=== PATIENT | male | born 1940 ===

== ENCOUNTER 2020-11-27 05:00 | Inpatient (IN) | payer MEDICARE, MEDICAID ==
[~2020-11-27] VITALS: Ht 171.4 cm; Wt 86.6 kg
[2020-11-27] MEDS ORDERED: ONDANSETRON ODT 4 MG PO PRN (10:30)
[2020-11-27] MEDS ORDERED: PLEASE ENTER HEIGHT AND WEIGHT MC SCH (15:30)
[2020-11-27] MEDS ORDERED: MEMA5TAB PO (16:18)
[2020-11-27] MEDS ORDERED: ASPI-963 PO (16:20)
[2020-11-27] MEDS ORDERED: PROP20TA PO (16:20)
[2020-11-27] MEDS ORDERED: PRIM50TA34 PO (16:20)
[2020-11-27] MEDS ORDERED: RISP0.5T24 PO (16:21)
[2020-11-27] MEDS ORDERED: ATOR80TA PO (16:45)
[2020-11-27 16:50] VITALS: BP 143/63
[2020-11-27 19:35] VITALS: BP 121/68
[2020-11-28 05:47] LABS: BASOPHILS % (AUTO) 1 % (0-1); EOSINOPHILS % (AUTO) 2 % (1-7); LYMPHOCYTES % (AUTO) 28 % (22-44); MEAN CORPUSCULAR HEMOGLOBIN 31.8 pg (27.5-34.5); MEAN CORPUSCULAR HGB CONC 33.6 g/dL (33.2-36.2); MEAN PLATELET VOLUME 8.4 fL (7.4-10.4); MONOCYTES % (AUTO) 10 % (2-9); NEUTROPHILS % (AUTO) 60 % (42-75); PLATELET COUNT 154 x10^3/uL (130-400); RED BLOOD COUNT 4.76 x10^6/uL (4.38-5.82); RED CELL DISTRIBUTION WIDTH 13.8 % (9.4-14.8)
[2020-11-28 05:57] LABS: MD NO
[2020-11-28 06:07] LABS: CHLORIDE 109 mmol/L (98-107)
[2020-11-28 06:23] LABS: ALANINE AMINOTRANSFERASE 20 U/L (12-78); ALKALINE PHOSPHATASE 65 U/L (45-117); ANION GAP 5 mmol/L (5-15); BILIRUBIN,TOTAL 0.5 mg/dL (0.2-1.0); CALCIUM 8.5 mg/dL (8.5-10.1); CHOL/HDL RATIO 4.9; CHOLESTEROL, TOTAL 165 mg/dL (140-239); CREATININE 1.18 mg/dL (0.7-1.3); FREE T4 (FREE THYROXINE) 1.27 ng/dL (0.76-1.46); HDL CHOL % 21 % (26-37); HDL CHOLESTEROL (DIRECT) 34 mg/dL (40-60); LDL CHOLESTEROL,CALCULATED 105 mg/dL (54-169); LDL/HDL RATIO 3.1 (0.5-3.0); TOTAL PROTEIN 6.3 g/dL (6.4-8.2); TRIGLYCERIDES 131 mg/dL (50-200); VLDL CHOLESTEROL 26 mg/dL (0-25)
[2020-11-28 07:41] VITALS: BP 119/72
[2020-11-28] MEDS: ASPIRIN 81 MG TABLET EC PO SCH (08:26)
[2020-11-28 15:52] LABS: MICROSCOPIC NOT IND
[2020-11-28 19:54] VITALS: BP 138/79
[2020-11-28] MEDS: ATORVASTATIN 80 MG TABLET PO SCH (20:18)
[2020-11-28] MEDS: RISPERIDONE 0.5 MG TABLET PO SCH (20:18)
[2020-11-28] MEDS: MEMANTINE 5MG TABLET PO SCH (20:18)
[2020-11-29 08:00] VITALS: BP 160/84
[2020-11-29] MEDS: RISPERIDONE 0.5 MG TABLET PO SCH ×2 (09:00→20:14)
[2020-11-29] MEDS: MEMANTINE 5MG TABLET PO SCH ×2 (09:00→20:14)
[2020-11-29] MEDS: ASPIRIN 81 MG TABLET EC PO SCH (09:00)
[2020-11-29 11:52] VITALS: BP 160/84
[2020-11-29 19:38] VITALS: BP 105/70
[2020-11-29] MEDS: ATORVASTATIN 80 MG TABLET PO SCH (20:14)
[2020-11-30 08:00] VITALS: BP 103/61
[2020-11-30] MEDS: RISPERIDONE 0.5 MG TABLET PO SCH ×2 (09:00→21:01)
[2020-11-30] MEDS: MEMANTINE 5MG TABLET PO SCH ×2 (09:00→21:01)
[2020-11-30] MEDS: ASPIRIN 81 MG TABLET EC PO SCH (09:15)
[2020-11-30 19:41] VITALS: BP 128/74
[2020-11-30] MEDS: ATORVASTATIN 80 MG TABLET PO SCH (21:01)
[2020-12-01 07:39] VITALS: BP 122/64
[2020-12-01] MEDS: RISPERIDONE 0.5 MG TABLET PO SCH ×3 (09:00→21:11)
[2020-12-01] MEDS: ASPIRIN 81 MG TABLET EC PO SCH ×2 (09:00→09:35)
[2020-12-01] MEDS: MEMANTINE 5MG TABLET PO SCH ×2 (09:00→21:11)
[2020-12-01 19:50] VITALS: BP 154/80
[2020-12-01] MEDS: ATORVASTATIN 80 MG TABLET PO SCH (20:00)
[2020-12-02] MEDS ORDERED: ZIPRASIDONE 20 MG INJ IM ONE
[2020-12-02 00:21] VITALS: BP 127/99
[2020-12-02 07:32] VITALS: BP 119/69
[2020-12-02] MEDS: RISPERIDONE 0.5 MG TABLET PO SCH ×2 (09:00→20:21)
[2020-12-02] MEDS: ASPIRIN 81 MG TABLET EC PO SCH (09:00)
[2020-12-02] MEDS: MEMANTINE 5MG TABLET PO SCH ×2 (09:00→20:21)
[2020-12-02] MEDS ORDERED: OLANZAPINE 10 MG INJ IM PRN (14:00)
[2020-12-02 19:41] VITALS: BP 125/72
[2020-12-02] MEDS: ATORVASTATIN 80 MG TABLET PO SCH (20:21)
[2020-12-03 07:31] VITALS: BP 127/78
[2020-12-03] MEDS: ASPIRIN 81 MG TABLET EC PO SCH (08:44)
[2020-12-03] MEDS: RISPERIDONE 0.5 MG TABLET PO SCH ×2 (08:58→20:19)
[2020-12-03] MEDS: MEMANTINE 5MG TABLET PO SCH ×2 (08:58→20:19)
[2020-12-03 19:39] VITALS: BP 158/80
[2020-12-03] MEDS: ATORVASTATIN 80 MG TABLET PO SCH (20:19)
[2020-12-04 07:42] VITALS: BP 124/74
[2020-12-04] MEDS: MEMANTINE 5MG TABLET PO SCH ×3 (08:55→21:06)
[2020-12-04] MEDS: ASPIRIN 81 MG TABLET EC PO SCH (08:55)
[2020-12-04] MEDS: RISPERIDONE 0.5 MG TABLET PO SCH ×3 (08:55→21:06)
[2020-12-04 19:32] VITALS: BP 168/82
[2020-12-04] MEDS: ATORVASTATIN 80 MG TABLET PO SCH ×2 (21:02→21:06)
[2020-12-05 07:48] VITALS: BP 115/63
[2020-12-05] MEDS: MEMANTINE 5MG TABLET PO SCH ×2 (09:00→21:44)
[2020-12-05] MEDS: ASPIRIN 81 MG TABLET EC PO SCH (09:00)
[2020-12-05] MEDS: RISPERIDONE 0.5 MG TABLET PO SCH ×2 (09:00→21:44)
[2020-12-05] MEDS: ATORVASTATIN 80 MG TABLET PO SCH (21:44)
[2020-12-06] MEDS: RISPERIDONE 0.5 MG TABLET PO SCH ×2 (08:53→19:34)
[2020-12-06] MEDS: MEMANTINE 5MG TABLET PO SCH ×2 (08:54→19:34)
[2020-12-06] MEDS: ASPIRIN 81 MG TABLET EC PO SCH (08:54)
[2020-12-06 11:01] VITALS: BP 102/60
[2020-12-06 19:22] VITALS: BP 114/70
[2020-12-06] MEDS: ATORVASTATIN 80 MG TABLET PO SCH (19:34)
[2020-12-07 07:31] VITALS: BP 103/55
[2020-12-07] MEDS: ASPIRIN 81 MG TABLET EC PO SCH (08:41)
[2020-12-07] MEDS: RISPERIDONE 0.5 MG TABLET PO SCH ×2 (08:42→20:41)
[2020-12-07] MEDS: MEMANTINE 5MG TABLET PO SCH ×2 (08:42→20:41)
[2020-12-07 19:35] VITALS: BP 133/70
[2020-12-07] MEDS: ATORVASTATIN 80 MG TABLET PO SCH (20:41)
[2020-12-08 07:41] VITALS: BP 182/94
[2020-12-08 08:09] VITALS: BP 172/107
[2020-12-08] MEDS: ASPIRIN 81 MG TABLET EC PO SCH (08:35)
[2020-12-08] MEDS: MEMANTINE 5MG TABLET PO SCH ×2 (08:35→20:32)
[2020-12-08 08:39] VITALS: BP 151/93
[2020-12-08] MEDS: RISPERIDONE 0.5 MG TABLET PO SCH ×2 (08:39→20:32)
[2020-12-08 19:45] VITALS: BP 145/90
[2020-12-08] MEDS: ATORVASTATIN 80 MG TABLET PO SCH (20:32)
[2020-12-09] MEDS ORDERED: RISPERIDONE 0.5 MG TABLET PO SCH (02:00)
[2020-12-09] MEDS ORDERED: RISPERIDONE 0.5 MG TABLET PO ONE (02:30)
[2020-12-09 07:34] VITALS: BP 113/68
[2020-12-09] MEDS: MEMANTINE 5MG TABLET PO SCH ×2 (09:07→20:04)
[2020-12-09] MEDS: ASPIRIN 81 MG TABLET EC PO SCH (09:07)
[2020-12-09] MEDS: RISPERIDONE 0.5 MG TABLET PO SCH (09:08)
[2020-12-09 19:19] VITALS: BP 108/71
[2020-12-09] MEDS: ATORVASTATIN 80 MG TABLET PO SCH (20:04)
[2020-12-09] MEDS: OLANZAPINE ODT 10MG PO SCH (20:04)
[2020-12-10 07:30] VITALS: BP 117/71
[2020-12-10] MEDS: MEMANTINE 5MG TABLET PO SCH ×2 (08:41→19:58)
[2020-12-10] MEDS: ASPIRIN 81 MG TABLET EC PO SCH (08:41)
[2020-12-10] MEDS: ACETAMINOPHEN 325 MG TABLET PO PRN (19:58)
[2020-12-10] MEDS: OLANZAPINE ODT 10MG PO SCH (19:58)
[2020-12-10] MEDS: ATORVASTATIN 80 MG TABLET PO SCH (19:58)
[2020-12-10 20:09] VITALS: BP 116/64
[2020-12-11 07:33] VITALS: BP 133/63
[2020-12-11] MEDS: MEMANTINE 5MG TABLET PO SCH ×2 (08:42→20:06)
[2020-12-11] MEDS: ASPIRIN 81 MG TABLET EC PO SCH (08:42)
[2020-12-11 13:14] LABS: ALANINE AMINOTRANSFERASE 25 U/L (12-78); ALBUMIN 3.2 g/dL (3.4-5.0); ANION GAP 7 mmol/L (5-15); CALCIUM 8.7 mg/dL (8.5-10.1); CHLORIDE 109 mmol/L (98-107); CREATININE 1.06 mg/dL (0.7-1.3)
[2020-12-11 13:17] LABS: ALKALINE PHOSPHATASE 87 U/L (45-117); BILIRUBIN,TOTAL 0.5 mg/dL (0.2-1.0); TOTAL PROTEIN 7.5 g/dL (6.4-8.2)
[2020-12-11 19:55] VITALS: BP 139/86
[2020-12-11] MEDS: ATORVASTATIN 80 MG TABLET PO SCH ×2 (20:00→20:06)
[2020-12-11] MEDS: OLANZAPINE ODT 10MG PO SCH ×2 (20:00→20:06)
[2020-12-11] MEDS: ACETAMINOPHEN 325 MG TABLET PO PRN (20:06)
[2020-12-12 07:25] VITALS: BP 121/76
[2020-12-12] MEDS: MEMANTINE 5MG TABLET PO SCH ×3 (08:34→20:13)
[2020-12-12] MEDS: ASPIRIN 81 MG TABLET EC PO SCH ×2 (08:35→08:47)
[2020-12-12 19:35] VITALS: BP 129/75
[2020-12-12] MEDS: OLANZAPINE ODT 10MG PO SCH (20:13)
[2020-12-12] MEDS: ATORVASTATIN 80 MG TABLET PO SCH (20:13)
[2020-12-13 07:20] VITALS: BP 132/80
[2020-12-13] MEDS: MEMANTINE 5MG TABLET PO SCH ×2 (08:48→21:00)
[2020-12-13] MEDS: ASPIRIN 81 MG TABLET EC PO SCH (08:48)
[2020-12-13 19:26] VITALS: BP 155/88
[2020-12-13] MEDS: OLANZAPINE 5 MG TABLET PO SCH (21:00)
[2020-12-13] MEDS: ATORVASTATIN 80 MG TABLET PO SCH (21:00)
[2020-12-14] MEDS ORDERED: LORazepam 2 MG/ML, 1ML IM ONE ×2 (03:30)
[2020-12-14 07:28] VITALS: BP 127/66
[2020-12-14 08:10] VITALS: BP 131/76
[2020-12-14] MEDS: MEMANTINE 5MG TABLET PO SCH ×2 (09:00→21:00)
[2020-12-14] MEDS: OLANZAPINE 5 MG TABLET PO SCH ×2 (09:14→21:00)
[2020-12-14] MEDS: ASPIRIN 81 MG TABLET EC PO SCH (09:15)
[2020-12-14] MEDS: ATORVASTATIN 80 MG TABLET PO SCH (21:00)
[2020-12-15 08:06] VITALS: BP 108/68
[2020-12-15] MEDS: ASPIRIN 81 MG TABLET EC PO SCH (09:08)
[2020-12-15] MEDS: MEMANTINE 5MG TABLET PO SCH ×2 (09:08→20:18)
[2020-12-15] MEDS: OLANZAPINE 5 MG TABLET PO SCH ×2 (09:08→20:19)
[2020-12-15 19:20] VITALS: BP 110/68
[2020-12-15] MEDS: ATORVASTATIN 80 MG TABLET PO SCH (20:18)
[2020-12-16 07:46] VITALS: BP 99/60
[2020-12-16] MEDS: OLANZAPINE 5 MG TABLET PO SCH ×3 (08:45→20:14)
[2020-12-16] MEDS: MEMANTINE 5MG TABLET PO SCH ×2 (08:46→20:14)
[2020-12-16] MEDS: ASPIRIN 81 MG TABLET EC PO SCH (08:46)
[2020-12-16 19:40] VITALS: BP 105/70
[2020-12-16] MEDS: ATORVASTATIN 80 MG TABLET PO SCH (20:14)
[2020-12-17 07:30] VITALS: BP 138/87
[2020-12-17] MEDS: MEMANTINE 5MG TABLET PO SCH ×3 (08:48→20:55)
[2020-12-17] MEDS: OLANZAPINE 5 MG TABLET PO SCH ×3 (08:48→20:55)
[2020-12-17] MEDS: ASPIRIN 81 MG TABLET EC PO SCH (08:48)
[2020-12-17 19:35] VITALS: BP 160/71
[2020-12-17] MEDS: ATORVASTATIN 80 MG TABLET PO SCH ×2 (20:33→20:55)
[2020-12-18] VITALS (7 sets, daily range): BP systolic 104–168; BP diastolic 71–123
--- NOTE | 2020-12-18 03:36 | NUR ---
ZULMA KANG - Fall Risk Medications NOT present and receiving anticoagulants.
[2020-12-18] MEDS: ACETAMINOPHEN 325 MG TABLET PO PRN (04:24)
[2020-12-18] MEDS: ASPIRIN 81 MG TABLET EC PO SCH (08:38)
[2020-12-18] MEDS: MEMANTINE 5MG TABLET PO SCH ×2 (08:38→19:52)
[2020-12-18] MEDS: OLANZAPINE 5 MG TABLET PO SCH ×2 (08:38→19:52)
[2020-12-18] MEDS: ATORVASTATIN 80 MG TABLET PO SCH (19:52)
[2020-12-19] MEDS: ASPIRIN 81 MG TABLET EC PO SCH (08:56)
[2020-12-19] MEDS: OLANZAPINE 5 MG TABLET PO SCH ×2 (08:56→20:46)
[2020-12-19] MEDS: MEMANTINE 5MG TABLET PO SCH ×2 (08:56→20:45)
[2020-12-19] MEDS: ACETAMINOPHEN 325 MG TABLET PO PRN (08:57)
[2020-12-19 19:46] VITALS: BP 107/70
[2020-12-19] MEDS: ATORVASTATIN 80 MG TABLET PO SCH (20:46)
[2020-12-20 07:25] VITALS: BP 118/70
[2020-12-20] MEDS: ASPIRIN 81 MG TABLET EC PO SCH (08:39)
[2020-12-20] MEDS: OLANZAPINE 5 MG TABLET PO SCH ×2 (08:40→20:28)
[2020-12-20] MEDS: MEMANTINE 5MG TABLET PO SCH ×2 (08:40→20:28)
[2020-12-20 19:18] VITALS: BP 136/70
[2020-12-20] MEDS: TRIHEXYPHENIDYL 2MG TABLET PO SCH (20:27)
[2020-12-20] MEDS: ATORVASTATIN 80 MG TABLET PO SCH (20:28)
[2020-12-21 07:55] VITALS: BP 132/63
[2020-12-21] MEDS: ASPIRIN 81 MG TABLET EC PO SCH (08:41)
[2020-12-21] MEDS: OLANZAPINE 5 MG TABLET PO SCH ×2 (08:41→20:44)
[2020-12-21] MEDS: TRIHEXYPHENIDYL 2MG TABLET PO SCH ×2 (08:41→20:44)
[2020-12-21] MEDS: MEMANTINE 5MG TABLET PO SCH ×2 (08:41→20:44)
[2020-12-21 19:30] VITALS: BP 140/60
[2020-12-21] MEDS: ATORVASTATIN 80 MG TABLET PO SCH (20:44)
[2020-12-22 07:20] VITALS: BP 131/71
[2020-12-22] MEDS: ASPIRIN 81 MG TABLET EC PO SCH (08:50)
[2020-12-22] MEDS: OLANZAPINE 5 MG TABLET PO SCH (08:50)
[2020-12-22] MEDS: TRIHEXYPHENIDYL 2MG TABLET PO SCH ×2 (08:50→20:52)
[2020-12-22] MEDS: MEMANTINE 5MG TABLET PO SCH ×2 (08:50→20:53)
[2020-12-22] MEDS ORDERED: DIAZEPAM 5 MG/ML, 2ML IM ONE ×2 (13:30→23:00)
[2020-12-22 15:04] VITALS: BP 149/81
[2020-12-22 19:45] VITALS: BP 140/80
[2020-12-22] MEDS: OLANZAPINE 2.5 MG TABLET PO SCH (20:53)
[2020-12-22] MEDS: ATORVASTATIN 80 MG TABLET PO SCH (20:53)
[2020-12-23 07:35] VITALS: BP 103/64
[2020-12-23] MEDS: MEMANTINE 5MG TABLET PO SCH ×2 (09:00→14:54)
[2020-12-23] MEDS: ASPIRIN 81 MG TABLET EC PO SCH (09:00)
[2020-12-23] MEDS: ACETAMINOPHEN 325 MG TABLET PO PRN (14:54)
[2020-12-23 19:30] VITALS: BP 112/72
[2020-12-23] MEDS: ATORVASTATIN 80 MG TABLET PO SCH (21:00)
[2020-12-23] MEDS: OLANZAPINE 2.5 MG TABLET PO SCH (21:00)
[2020-12-23] MEDS: TRIHEXYPHENIDYL 2MG TABLET PO SCH (21:00)
[2020-12-24] MEDS: ASPIRIN 81 MG TABLET EC PO SCH (07:25)
[2020-12-24 07:29] VITALS: BP 114/66
[2020-12-24] MEDS: MEMANTINE 5MG TABLET PO SCH ×3 (09:00→20:27)
[2020-12-24] MEDS: ACETAMINOPHEN 325 MG TABLET PO PRN (17:16)
[2020-12-24 19:24] VITALS: BP 121/71
[2020-12-24] MEDS: ZIPRASIDONE 20MG CAPSULE PO SCH (20:26)
[2020-12-24] MEDS: ATORVASTATIN 80 MG TABLET PO SCH (20:26)
[2020-12-24] MEDS: TRIHEXYPHENIDYL 2MG TABLET PO SCH (20:27)
[2020-12-25] MEDS: ACETAMINOPHEN 325 MG TABLET PO PRN (04:46)
[2020-12-25 07:22] VITALS: BP 128/64
[2020-12-25] MEDS: ASPIRIN 81 MG TABLET EC PO SCH ×2 (09:00→09:11)
[2020-12-25] MEDS: MEMANTINE 5MG TABLET PO SCH ×3 (09:00→19:25)
[2020-12-25] MEDS: ZIPRASIDONE 20MG CAPSULE PO SCH ×3 (09:00→19:26)
[2020-12-25] MEDS: TRIHEXYPHENIDYL 2MG TABLET PO SCH (19:25)
[2020-12-25] MEDS: ATORVASTATIN 80 MG TABLET PO SCH (19:26)
[2020-12-25 19:31] VITALS: BP 138/72
[2020-12-26 07:30] VITALS: BP 135/59
[2020-12-26] MEDS: ASPIRIN 81 MG TABLET EC PO SCH (09:10)
[2020-12-26] MEDS: MEMANTINE 5MG TABLET PO SCH ×2 (09:11→21:27)
[2020-12-26] MEDS: ZIPRASIDONE 20MG CAPSULE PO SCH ×2 (09:11→21:27)
[2020-12-26] MEDS: ATORVASTATIN 80 MG TABLET PO SCH (21:27)
[2020-12-26] MEDS: TRIHEXYPHENIDYL 2MG TABLET PO SCH (21:27)
[2020-12-27 07:25] VITALS: BP 105/61
[2020-12-27] MEDS: MEMANTINE 5MG TABLET PO SCH ×2 (08:09→20:35)
[2020-12-27] MEDS: ASPIRIN 81 MG TABLET EC PO SCH (08:09)
[2020-12-27] MEDS: ZIPRASIDONE 20MG CAPSULE PO SCH ×2 (08:09→20:35)
[2020-12-27 19:47] VITALS: BP 109/74
[2020-12-27] MEDS: ATORVASTATIN 80 MG TABLET PO SCH (20:35)
[2020-12-27] MEDS: TRIHEXYPHENIDYL 2MG TABLET PO SCH (20:35)
[2020-12-28 07:38] VITALS: BP 110/56
[2020-12-28] MEDS: MEMANTINE 5MG TABLET PO SCH ×2 (08:25→20:37)
[2020-12-28] MEDS: ZIPRASIDONE 20MG CAPSULE PO SCH ×2 (08:25→20:37)
[2020-12-28] MEDS: ASPIRIN 81 MG TABLET EC PO SCH (08:25)
[2020-12-28] MEDS: AMOXICILLIN/CLAV 875-125MG TABLET PO SCH (13:00)
[2020-12-28] MEDS: TRIHEXYPHENIDYL 2MG TABLET PO SCH (20:37)
[2020-12-28] MEDS: ATORVASTATIN 80 MG TABLET PO SCH (20:37)
[2020-12-28 22:00] VITALS: BP 100/65
[2020-12-29] MEDS: AMOXICILLIN/CLAV 875-125MG TABLET PO SCH ×2 (00:40→13:03)
[2020-12-29 05:54] LABS: BASOPHILS % (AUTO) 1 % (0-1); EOSINOPHILS % (AUTO) 3 % (1-7); LYMPHOCYTES % (AUTO) 24 % (22-44); MEAN CORPUSCULAR HEMOGLOBIN 31.3 pg (27.5-34.5); MEAN CORPUSCULAR HGB CONC 33.7 g/dL (33.2-36.2); MEAN PLATELET VOLUME 7.5 fL (7.4-10.4); MONOCYTES % (AUTO) 9 % (2-9); NEUTROPHILS % (AUTO) 64 % (42-75); PLATELET COUNT 322 x10^3/uL (130-400); RED BLOOD COUNT 4.66 x10^6/uL (4.38-5.82); RED CELL DISTRIBUTION WIDTH 13.3 % (9.4-14.8)
[2020-12-29 06:04] LABS: ANION GAP 4 mmol/L (5-15); CALCIUM 8.6 mg/dL (8.5-10.1); CHLORIDE 107 mmol/L (98-107)
[2020-12-29 06:05] LABS: CREATININE 1.02 mg/dL (0.7-1.3)
[2020-12-29 06:06] LABS: MD NO
[2020-12-29 07:46] VITALS: BP 115/59
[2020-12-29] MEDS: ZIPRASIDONE 20MG CAPSULE PO SCH ×3 (08:58→21:00)
[2020-12-29] MEDS: ASPIRIN 81 MG TABLET EC PO SCH (08:58)
[2020-12-29] MEDS: MEMANTINE 5MG TABLET PO SCH ×3 (08:58→21:00)
[2020-12-29 19:30] VITALS: BP 110/53
[2020-12-29] MEDS: TRIHEXYPHENIDYL 2MG TABLET PO SCH ×2 (20:04→21:04)
[2020-12-29] MEDS: ATORVASTATIN 80 MG TABLET PO SCH ×2 (20:04→21:04)
[2020-12-30] MEDS: AMOXICILLIN/CLAV 875-125MG TABLET PO SCH ×2 (01:01→08:51)
[2020-12-30 07:28] VITALS: BP 113/61
[2020-12-30] MEDS: ASPIRIN 81 MG TABLET EC PO SCH (08:51)
[2020-12-30] MEDS: ZIPRASIDONE 20MG CAPSULE PO SCH ×3 (08:51→21:00)
[2020-12-30] MEDS: MEMANTINE 5MG TABLET PO SCH ×3 (08:54→21:00)
[2020-12-30] MEDS: AMPICILLIN/SULBACTAM 3 GM in SODIUM CHLORIDE 0.9% 100 ML IV SCH ×2 (13:19→20:51)
[2020-12-30] MEDS: LINEZOLID 20MG/ML ORAL SUSP PO SCH (13:21)
[2020-12-30] MEDS: TRIHEXYPHENIDYL 2MG TABLET PO SCH ×2 (19:44→21:00)
[2020-12-30] MEDS: ATORVASTATIN 80 MG TABLET PO SCH ×2 (19:44→21:00)
[2020-12-30 19:45] VITALS: BP 115/70
[2020-12-30] MEDS: ACETAMINOPHEN 325 MG TABLET PO PRN (19:45)
[2020-12-31] MEDS: LINEZOLID 20MG/ML ORAL SUSP PO SCH ×4 (00:37→20:48)
[2020-12-31] MEDS: AMPICILLIN/SULBACTAM 3 GM in SODIUM CHLORIDE 0.9% 100 ML IV SCH ×3 (04:45→20:48)
[2020-12-31 07:46] VITALS: BP 119/77
[2020-12-31] MEDS: ASPIRIN 81 MG TABLET EC PO SCH (09:32)
[2020-12-31] MEDS: MEMANTINE 5MG TABLET PO SCH ×2 (09:33→20:34)
[2020-12-31] MEDS: ZIPRASIDONE 20MG CAPSULE PO SCH ×2 (09:33→20:34)
[2020-12-31 20:12] VITALS: BP 170/94
[2020-12-31] MEDS: TRIHEXYPHENIDYL 2MG TABLET PO SCH (20:34)
[2020-12-31] MEDS: ATORVASTATIN 80 MG TABLET PO SCH (20:34)
[2020-12-31 20:47] VITALS: BP 171/93
[2020-12-31] MEDS: LINEZOLID 600 MG TABLET PO SCH (21:23)
[2020-12-31 21:42] VITALS: BP 145/75
[2021-01-01] MEDS: AMPICILLIN/SULBACTAM 3 GM in SODIUM CHLORIDE 0.9% 100 ML IV SCH (04:30)
[2021-01-01 07:27] VITALS: BP 137/82
[2021-01-01] MEDS: MEMANTINE 5MG TABLET PO SCH ×2 (09:00→21:07)
[2021-01-01] MEDS: LINEZOLID 600 MG TABLET PO SCH ×2 (09:00→21:08)
[2021-01-01] MEDS: ASPIRIN 81 MG TABLET EC PO SCH (09:00)
[2021-01-01] MEDS: ZIPRASIDONE 20MG CAPSULE PO SCH ×2 (09:00→21:06)
[2021-01-01 20:11] VITALS: BP 109/57
[2021-01-01] MEDS: TRIHEXYPHENIDYL 2MG TABLET PO SCH (21:05)
[2021-01-01] MEDS: ATORVASTATIN 80 MG TABLET PO SCH (21:06)
[2021-01-01] MEDS: AMOXICILLIN/CLAV 875-125MG TABLET PO SCH (21:06)
[2021-01-02 07:03] VITALS: BP 113/64
[2021-01-02 07:35] LABS: BASOPHILS % (AUTO) 1 % (0-1); EOSINOPHILS % (AUTO) 3 % (1-7); LYMPHOCYTES % (AUTO) 16 % (22-44); MEAN CORPUSCULAR HEMOGLOBIN 31.3 pg (27.5-34.5); MEAN CORPUSCULAR HGB CONC 33.7 g/dL (33.2-36.2); MEAN PLATELET VOLUME 7.5 fL (7.4-10.4); MONOCYTES % (AUTO) 9 % (2-9); NEUTROPHILS % (AUTO) 71 % (42-75); PLATELET COUNT 272 x10^3/uL (130-400); RED BLOOD COUNT 4.68 x10^6/uL (4.38-5.82); RED CELL DISTRIBUTION WIDTH 13.5 % (9.4-14.8)
[2021-01-02 07:40] LABS: MD NO
[2021-01-02 07:51] LABS: ANION GAP 7 mmol/L (5-15); CALCIUM 8.8 mg/dL (8.5-10.1); CHLORIDE 107 mmol/L (98-107); CREATININE 1.05 mg/dL (0.7-1.3)
[2021-01-02] MEDS: MEMANTINE 5MG TABLET PO SCH ×3 (08:52→23:36)
[2021-01-02] MEDS: AMOXICILLIN/CLAV 875-125MG TABLET PO SCH (08:52)
[2021-01-02] MEDS: ZIPRASIDONE 20MG CAPSULE PO SCH ×3 (08:53→23:35)
[2021-01-02] MEDS: ASPIRIN 81 MG TABLET EC PO SCH (08:53)
[2021-01-02] MEDS: LINEZOLID 600 MG TABLET PO SCH (08:53)
[2021-01-02] MEDS: CEPHALEXIN 500 MG CAPSULE PO SCH ×3 (16:15→23:35)
[2021-01-02 22:31] VITALS: BP 147/75
[2021-01-02] MEDS: TRIHEXYPHENIDYL 2MG TABLET PO SCH ×2 (22:41→23:35)
[2021-01-02] MEDS: DOXYCYCLINE 100MG TABLET PO SCH ×2 (22:41→23:36)
[2021-01-02] MEDS: ATORVASTATIN 80 MG TABLET PO SCH ×2 (22:41→23:36)
[2021-01-03] MEDS: CEPHALEXIN 500 MG CAPSULE PO SCH ×4 (06:14→21:00)
[2021-01-03 07:40] VITALS: BP 112/71
[2021-01-03] MEDS: DOXYCYCLINE 100MG TABLET PO SCH ×2 (08:42→21:00)
[2021-01-03] MEDS: ZIPRASIDONE 20MG CAPSULE PO SCH ×2 (08:42→21:00)
[2021-01-03] MEDS: ASPIRIN 81 MG TABLET EC PO SCH (08:42)
[2021-01-03] MEDS: MEMANTINE 5MG TABLET PO SCH ×2 (08:43→21:00)
[2021-01-03 19:56] VITALS: BP 114/61
[2021-01-03] MEDS: TRIHEXYPHENIDYL 2MG TABLET PO SCH (21:00)
[2021-01-03] MEDS: ATORVASTATIN 80 MG TABLET PO SCH (21:00)
[2021-01-04] MEDS: CEPHALEXIN 500 MG CAPSULE PO SCH ×4 (06:23→20:11)
[2021-01-04 07:54] VITALS: BP 150/83
[2021-01-04] MEDS: DOXYCYCLINE 100MG TABLET PO SCH ×2 (09:13→20:11)
[2021-01-04] MEDS: ASPIRIN 81 MG TABLET EC PO SCH (09:14)
[2021-01-04] MEDS: MEMANTINE 5MG TABLET PO SCH ×2 (09:14→20:10)
[2021-01-04] MEDS: ZIPRASIDONE 20MG CAPSULE PO SCH ×2 (09:14→20:10)
[2021-01-04 19:35] VITALS: BP 143/84
[2021-01-04] MEDS: ATORVASTATIN 80 MG TABLET PO SCH (20:10)
[2021-01-04] MEDS: TRIHEXYPHENIDYL 2MG TABLET PO SCH (20:10)
[2021-01-05] MEDS: CEPHALEXIN 500 MG CAPSULE PO SCH ×4 (06:03→20:56)
[2021-01-05 07:48] VITALS: BP 147/76
[2021-01-05] MEDS: DOXYCYCLINE 100MG TABLET PO SCH ×2 (08:53→20:57)
[2021-01-05] MEDS: MEMANTINE 5MG TABLET PO SCH ×2 (08:53→20:56)
[2021-01-05] MEDS: ZIPRASIDONE 20MG CAPSULE PO SCH ×2 (08:54→20:56)
[2021-01-05] MEDS: ASPIRIN 81 MG TABLET EC PO SCH (08:54)
[2021-01-05 20:09] VITALS: BP 132/78
[2021-01-05] MEDS: TRIHEXYPHENIDYL 2MG TABLET PO SCH (20:56)
[2021-01-05] MEDS: ATORVASTATIN 80 MG TABLET PO SCH (20:56)
[2021-01-06] MEDS: CEPHALEXIN 500 MG CAPSULE PO SCH ×4 (06:26→20:06)
[2021-01-06 08:04] VITALS: BP 151/83
[2021-01-06] MEDS: ASPIRIN 81 MG TABLET EC PO SCH (09:00)
[2021-01-06] MEDS: MEMANTINE 5MG TABLET PO SCH ×2 (09:06→20:05)
[2021-01-06] MEDS: DOXYCYCLINE 100MG TABLET PO SCH ×2 (09:06→20:05)
[2021-01-06] MEDS: ZIPRASIDONE 20MG CAPSULE PO SCH ×2 (09:06→20:05)
[2021-01-06 19:43] VITALS: BP 153/79
[2021-01-06] MEDS: ATORVASTATIN 80 MG TABLET PO SCH (20:05)
[2021-01-06] MEDS: TRIHEXYPHENIDYL 2MG TABLET PO SCH (20:06)
[2021-01-07] MEDS: CEPHALEXIN 500 MG CAPSULE PO SCH ×4 (06:37→20:55)
[2021-01-07 08:04] VITALS: BP 112/74
[2021-01-07] MEDS: DOXYCYCLINE 100MG TABLET PO SCH ×2 (08:18→20:55)
[2021-01-07] MEDS: ASPIRIN 81 MG TABLET EC PO SCH (08:18)
[2021-01-07] MEDS: MEMANTINE 5MG TABLET PO SCH ×2 (08:18→20:55)
[2021-01-07] MEDS: ZIPRASIDONE 20MG CAPSULE PO SCH ×2 (08:18→20:55)
[2021-01-07 20:19] VITALS: BP 115/72
[2021-01-07] MEDS: TRIHEXYPHENIDYL 2MG TABLET PO SCH (20:55)
[2021-01-07] MEDS: ATORVASTATIN 80 MG TABLET PO SCH (20:57)
[2021-01-08] MEDS: CEPHALEXIN 500 MG CAPSULE PO SCH ×4 (05:13→22:19)
[2021-01-08 08:10] VITALS: BP 119/67
[2021-01-08] MEDS: ZIPRASIDONE 20MG CAPSULE PO SCH ×2 (08:12→22:19)
[2021-01-08] MEDS: DOXYCYCLINE 100MG TABLET PO SCH ×2 (08:12→22:19)
[2021-01-08] MEDS: MEMANTINE 5MG TABLET PO SCH ×2 (08:12→22:19)
[2021-01-08] MEDS: ASPIRIN 81 MG TABLET EC PO SCH (08:12)
[2021-01-08 19:52] VITALS: BP 120/72
[2021-01-08] MEDS: ATORVASTATIN 80 MG TABLET PO SCH (22:19)
[2021-01-08] MEDS: TRIHEXYPHENIDYL 2MG TABLET PO SCH (22:19)
[2021-01-09] MEDS: CEPHALEXIN 500 MG CAPSULE PO SCH ×2 (04:32→10:51)
[2021-01-09 07:30] VITALS: BP 113/58
[2021-01-09] MEDS: ASPIRIN 81 MG TABLET EC PO SCH (08:11)
[2021-01-09] MEDS: DOXYCYCLINE 100MG TABLET PO SCH ×2 (08:11→21:23)
[2021-01-09] MEDS: MEMANTINE 5MG TABLET PO SCH ×2 (08:11→21:23)
[2021-01-09] MEDS: ZIPRASIDONE 20MG CAPSULE PO SCH ×2 (08:11→21:23)
[2021-01-09 18:05] VITALS: BP 149/71
[2021-01-09] MEDS: TRIHEXYPHENIDYL 2MG TABLET PO SCH (21:23)
[2021-01-09] MEDS: ATORVASTATIN 80 MG TABLET PO SCH (21:23)
[2021-01-10 07:37] VITALS: BP 149/96
[2021-01-10] MEDS: MEMANTINE 5MG TABLET PO SCH ×2 (08:30→21:31)
[2021-01-10] MEDS: ZIPRASIDONE 20MG CAPSULE PO SCH ×2 (08:30→21:31)
[2021-01-10] MEDS: DOXYCYCLINE 100MG TABLET PO SCH ×2 (08:30→21:31)
[2021-01-10] MEDS: ASPIRIN 81 MG TABLET EC PO SCH (08:31)
[2021-01-10 19:58] VITALS: BP 140/70
[2021-01-10] MEDS: ATORVASTATIN 80 MG TABLET PO SCH (21:31)
[2021-01-10] MEDS: TRIHEXYPHENIDYL 2MG TABLET PO SCH (21:31)
[2021-01-11 07:59] VITALS: BP 109/61
[2021-01-11] MEDS: DOXYCYCLINE 100MG TABLET PO SCH ×2 (08:34→22:06)
[2021-01-11] MEDS: ASPIRIN 81 MG TABLET EC PO SCH (08:34)
[2021-01-11] MEDS: MEMANTINE 5MG TABLET PO SCH ×2 (08:34→22:07)
[2021-01-11] MEDS: ZIPRASIDONE 20MG CAPSULE PO SCH ×2 (08:34→22:07)
[2021-01-11 20:50] VITALS: BP 123/60
[2021-01-11] MEDS: TRIHEXYPHENIDYL 2MG TABLET PO SCH (22:07)
[2021-01-11] MEDS: ATORVASTATIN 80 MG TABLET PO SCH (22:07)
[2021-01-12 08:01] VITALS: BP 111/59
[2021-01-12] MEDS: ZIPRASIDONE 20MG CAPSULE PO SCH ×2 (08:48→20:12)
[2021-01-12] MEDS: ASPIRIN 81 MG TABLET EC PO SCH (08:48)
[2021-01-12] MEDS: MEMANTINE 5MG TABLET PO SCH ×2 (08:48→20:12)
[2021-01-12] MEDS: DOXYCYCLINE 100MG TABLET PO SCH ×2 (08:48→20:12)
[2021-01-12 18:45] VITALS: BP 120/71
[2021-01-12] MEDS: ATORVASTATIN 80 MG TABLET PO SCH (20:11)
[2021-01-12] MEDS: TRIHEXYPHENIDYL 2MG TABLET PO SCH (20:11)
[2021-01-13 08:04] VITALS: BP 132/61
[2021-01-13] MEDS: ZIPRASIDONE 20MG CAPSULE PO SCH ×2 (08:19→20:29)
[2021-01-13] MEDS: ASPIRIN 81 MG TABLET EC PO SCH (08:19)
[2021-01-13] MEDS: DOXYCYCLINE 100MG TABLET PO SCH ×2 (08:19→20:29)
[2021-01-13] MEDS: MEMANTINE 5MG TABLET PO SCH ×2 (08:19→20:30)
[2021-01-13 19:57] VITALS: BP 146/74
[2021-01-13] MEDS: ATORVASTATIN 80 MG TABLET PO SCH (20:30)
[2021-01-13] MEDS: TRIHEXYPHENIDYL 2MG TABLET PO SCH (20:30)
[2021-01-14 08:00] VITALS: BP 145/69
[2021-01-14] MEDS: ASPIRIN 81 MG TABLET EC PO SCH (08:04)
[2021-01-14] MEDS: ZIPRASIDONE 20MG CAPSULE PO SCH ×2 (08:04→22:30)
[2021-01-14] MEDS: MEMANTINE 5MG TABLET PO SCH ×2 (08:05→22:30)
[2021-01-14] MEDS: DOXYCYCLINE 100MG TABLET PO SCH ×2 (08:05→22:30)
[2021-01-14 19:35] VITALS: BP 89/64
[2021-01-14] MEDS: TRIHEXYPHENIDYL 2MG TABLET PO SCH (22:29)
[2021-01-14] MEDS: ATORVASTATIN 80 MG TABLET PO SCH (22:30)
[2021-01-15 07:04] VITALS: BP 137/66
[2021-01-15] MEDS: ASPIRIN 81 MG TABLET EC PO SCH (09:17)
[2021-01-15] MEDS: MEMANTINE 5MG TABLET PO SCH ×2 (09:17→20:33)
[2021-01-15] MEDS: ZIPRASIDONE 20MG CAPSULE PO SCH ×2 (09:17→20:33)
[2021-01-15] MEDS: POLYETHYLENE GLYCOL 17 GM PACKET PO PRN (16:38)
[2021-01-15 19:35] VITALS: BP 122/71
[2021-01-15] MEDS: TRIHEXYPHENIDYL 2MG TABLET PO SCH (20:33)
[2021-01-15] MEDS: ATORVASTATIN 80 MG TABLET PO SCH (20:33)
[2021-01-16 08:19] VITALS: BP 124/84
[2021-01-16] MEDS: MEMANTINE 5MG TABLET PO SCH ×2 (09:17→20:06)
[2021-01-16] MEDS: ASPIRIN 81 MG TABLET EC PO SCH (09:17)
[2021-01-16] MEDS: ZIPRASIDONE 20MG CAPSULE PO SCH ×2 (09:17→20:06)
[2021-01-16] MEDS: DOCUSATE 100 MG CAPSULE PO PRN (10:37)
[2021-01-16] MEDS: POLYETHYLENE GLYCOL 17 GM PACKET PO PRN (10:37)
[2021-01-16 19:52] VITALS: BP 137/72
[2021-01-16] MEDS: ATORVASTATIN 80 MG TABLET PO SCH (20:06)
[2021-01-16] MEDS: TRIHEXYPHENIDYL 2MG TABLET PO SCH (20:06)
[2021-01-16] MEDS: LACTULOSE 10 GM/15 ML UDC PO SCH (20:08)
[2021-01-17] MEDS: ASPIRIN 81 MG TABLET EC PO SCH (07:53)
[2021-01-17] MEDS: LACTULOSE 10 GM/15 ML UDC PO SCH ×2 (07:53→20:43)
[2021-01-17] MEDS: MEMANTINE 5MG TABLET PO SCH ×2 (07:53→20:42)
[2021-01-17] MEDS: ZIPRASIDONE 20MG CAPSULE PO SCH ×2 (07:53→20:47)
[2021-01-17 07:56] VITALS: BP 116/74
[2021-01-17 19:29] VITALS: BP 107/67
[2021-01-17] MEDS: TRIHEXYPHENIDYL 2MG TABLET PO SCH (20:42)
[2021-01-17] MEDS: ATORVASTATIN 80 MG TABLET PO SCH (20:43)
[2021-01-18 07:59] VITALS: BP 158/74
[2021-01-18] MEDS: LACTULOSE 10 GM/15 ML UDC PO SCH ×2 (09:00→20:07)
[2021-01-18] MEDS: MEMANTINE 5MG TABLET PO SCH ×2 (09:28→20:07)
[2021-01-18] MEDS: ASPIRIN 81 MG TABLET EC PO SCH (09:29)
[2021-01-18] MEDS: ZIPRASIDONE 20MG CAPSULE PO SCH ×2 (09:29→20:07)
[2021-01-18 20:03] VITALS: BP 127/72
[2021-01-18] MEDS: TRIHEXYPHENIDYL 2MG TABLET PO SCH (20:06)
[2021-01-18] MEDS: ATORVASTATIN 80 MG TABLET PO SCH (20:07)
[2021-01-19 07:50] VITALS: BP 130/74
[2021-01-19] MEDS: ZIPRASIDONE 20MG CAPSULE PO SCH ×2 (08:43→19:54)
[2021-01-19] MEDS: ASPIRIN 81 MG TABLET EC PO SCH (08:43)
[2021-01-19] MEDS: MEMANTINE 5MG TABLET PO SCH ×2 (08:43→19:54)
[2021-01-19] MEDS: LACTULOSE 10 GM/15 ML UDC PO SCH ×2 (08:44→20:03)
[2021-01-19 19:30] VITALS: BP 125/70
[2021-01-19] MEDS: ATORVASTATIN 80 MG TABLET PO SCH (19:54)
[2021-01-19] MEDS: TRIHEXYPHENIDYL 2MG TABLET PO SCH (19:54)
[2021-01-20 07:29] VITALS: BP 140/78
[2021-01-20] MEDS: ASPIRIN 81 MG TABLET EC PO SCH (10:28)
[2021-01-20] MEDS: MEMANTINE 5MG TABLET PO SCH ×2 (10:28→20:32)
[2021-01-20] MEDS: ZIPRASIDONE 20MG CAPSULE PO SCH ×2 (10:28→20:32)
[2021-01-20] MEDS: LACTULOSE 10 GM/15 ML UDC PO SCH (10:29)
[2021-01-20 19:30] VITALS: BP 137/62
[2021-01-20] MEDS: ATORVASTATIN 80 MG TABLET PO SCH (20:32)
[2021-01-20] MEDS: TRIHEXYPHENIDYL 2MG TABLET PO SCH (20:32)
[2021-01-21 07:59] VITALS: BP 93/63
[2021-01-21] MEDS: MEMANTINE 5MG TABLET PO SCH ×2 (08:21→20:02)
[2021-01-21] MEDS: ASPIRIN 81 MG TABLET EC PO SCH (08:21)
[2021-01-21] MEDS: ZIPRASIDONE 20MG CAPSULE PO SCH ×2 (08:22→20:02)
[2021-01-21 09:25] VITALS: BP 99/65
[2021-01-21 19:25] VITALS: BP 120/69
[2021-01-21] MEDS: ATORVASTATIN 80 MG TABLET PO SCH (20:02)
[2021-01-21] MEDS: TRIHEXYPHENIDYL 2MG TABLET PO SCH (20:02)
[2021-01-22 07:35] VITALS: BP 133/77
[2021-01-22] MEDS: ZIPRASIDONE 20MG CAPSULE PO SCH ×2 (08:37→20:13)
[2021-01-22] MEDS: ASPIRIN 81 MG TABLET EC PO SCH (08:37)
[2021-01-22] MEDS: MEMANTINE 5MG TABLET PO SCH ×2 (08:38→20:13)
[2021-01-22 19:49] VITALS: BP 120/65
[2021-01-22] MEDS: ATORVASTATIN 80 MG TABLET PO SCH (20:13)
[2021-01-22] MEDS: DOCUSATE 100 MG CAPSULE PO PRN (20:13)
[2021-01-22] MEDS: TRIHEXYPHENIDYL 2MG TABLET PO SCH (20:13)
[2021-01-23 08:00] VITALS: BP 100/66
[2021-01-23] MEDS: MEMANTINE 5MG TABLET PO SCH ×2 (08:37→20:06)
[2021-01-23] MEDS: ASPIRIN 81 MG TABLET EC PO SCH (08:37)
[2021-01-23] MEDS: ZIPRASIDONE 20MG CAPSULE PO SCH ×2 (08:37→20:06)
[2021-01-23 19:37] VITALS: BP 111/57
[2021-01-23] MEDS: ATORVASTATIN 80 MG TABLET PO SCH (20:06)
[2021-01-23] MEDS: TRIHEXYPHENIDYL 2MG TABLET PO SCH (20:06)
[2021-01-24 06:53] VITALS: BP 128/72
[2021-01-24] MEDS: ASPIRIN 81 MG TABLET EC PO SCH (07:59)
[2021-01-24] MEDS: ZIPRASIDONE 20MG CAPSULE PO SCH ×2 (07:59→20:09)
[2021-01-24] MEDS: MEMANTINE 5MG TABLET PO SCH ×2 (07:59→20:09)
[2021-01-24 19:26] VITALS: BP 113/63
[2021-01-24] MEDS: TRIHEXYPHENIDYL 2MG TABLET PO SCH (20:09)
[2021-01-24] MEDS: ATORVASTATIN 80 MG TABLET PO SCH (20:10)
[2021-01-25 07:35] VITALS: BP 117/69
[2021-01-25] MEDS: ZIPRASIDONE 20MG CAPSULE PO SCH ×2 (09:01→19:45)
[2021-01-25] MEDS: MEMANTINE 5MG TABLET PO SCH ×2 (09:01→19:45)
[2021-01-25] MEDS: ASPIRIN 81 MG TABLET EC PO SCH (09:01)
[2021-01-25 18:33] VITALS: BP 109/56
[2021-01-25] MEDS: ATORVASTATIN 80 MG TABLET PO SCH (19:45)
[2021-01-25] MEDS: TRIHEXYPHENIDYL 2MG TABLET PO SCH (19:45)
[2021-01-26 07:44] VITALS: BP 132/62
[2021-01-26] MEDS: MEMANTINE 5MG TABLET PO SCH ×2 (08:25→20:27)
[2021-01-26] MEDS: ASPIRIN 81 MG TABLET EC PO SCH (08:25)
[2021-01-26] MEDS: ZIPRASIDONE 20MG CAPSULE PO SCH ×2 (08:25→20:27)
[2021-01-26 19:29] VITALS: BP 136/79
[2021-01-26] MEDS: ATORVASTATIN 80 MG TABLET PO SCH (20:27)
[2021-01-26] MEDS: TRIHEXYPHENIDYL 2MG TABLET PO SCH (20:27)
[2021-01-27 07:52] VITALS: BP 123/69
[2021-01-27] MEDS: ASPIRIN 81 MG TABLET EC PO SCH (08:31)
[2021-01-27] MEDS: MEMANTINE 5MG TABLET PO SCH ×2 (08:32→20:30)
[2021-01-27] MEDS: ZIPRASIDONE 20MG CAPSULE PO SCH ×2 (08:32→20:31)
[2021-01-27 19:37] VITALS: BP 127/68
[2021-01-27] MEDS: TRIHEXYPHENIDYL 2MG TABLET PO SCH (20:31)
[2021-01-27] MEDS: ATORVASTATIN 80 MG TABLET PO SCH (20:31)
[2021-01-28 07:33] VITALS: BP 153/68
[2021-01-28] MEDS: MEMANTINE 5MG TABLET PO SCH ×2 (08:41→21:09)
[2021-01-28] MEDS: ASPIRIN 81 MG TABLET EC PO SCH (08:41)
[2021-01-28] MEDS: ZIPRASIDONE 20MG CAPSULE PO SCH ×2 (08:42→21:09)
[2021-01-28 19:35] VITALS: BP 111/69
[2021-01-28] MEDS: TRIHEXYPHENIDYL 2MG TABLET PO SCH (21:09)
[2021-01-28] MEDS: ATORVASTATIN 80 MG TABLET PO SCH (21:09)
[2021-01-29 07:56] VITALS: BP 103/64
[2021-01-29] MEDS: ASPIRIN 81 MG TABLET EC PO SCH (08:42)
[2021-01-29] MEDS: MEMANTINE 5MG TABLET PO SCH ×2 (08:42→22:01)
[2021-01-29] MEDS: ZIPRASIDONE 20MG CAPSULE PO SCH ×2 (08:42→22:01)
[2021-01-29 19:56] VITALS: BP 97/64
[2021-01-29] MEDS: ATORVASTATIN 80 MG TABLET PO SCH (22:01)
[2021-01-29] MEDS: TRIHEXYPHENIDYL 2MG TABLET PO SCH (22:01)
[2021-01-30 07:46] VITALS: BP 88/40
[2021-01-30] MEDS: ASPIRIN 81 MG TABLET EC PO SCH (08:03)
[2021-01-30] MEDS: ZIPRASIDONE 20MG CAPSULE PO SCH ×2 (08:03→21:04)
[2021-01-30] MEDS: MEMANTINE 5MG TABLET PO SCH ×2 (08:03→21:04)
[2021-01-30 19:49] VITALS: BP 127/69
[2021-01-30] MEDS: TRIHEXYPHENIDYL 2MG TABLET PO SCH (21:04)
[2021-01-30] MEDS: ATORVASTATIN 80 MG TABLET PO SCH (21:04)
[2021-01-31 07:30] VITALS: BP 105/61
[2021-01-31] MEDS: MEMANTINE 5MG TABLET PO SCH ×2 (07:36→20:07)
[2021-01-31] MEDS: ASPIRIN 81 MG TABLET EC PO SCH (07:36)
[2021-01-31] MEDS: ZIPRASIDONE 20MG CAPSULE PO SCH ×2 (07:36→20:07)
[2021-01-31 19:08] VITALS: BP 117/74
[2021-01-31] MEDS: TRIHEXYPHENIDYL 2MG TABLET PO SCH (20:07)
[2021-01-31] MEDS: ATORVASTATIN 80 MG TABLET PO SCH (20:07)
[2021-02-01 07:40] VITALS: BP 104/63
[2021-02-01] MEDS: ZIPRASIDONE 20MG CAPSULE PO SCH ×2 (09:10→20:24)
[2021-02-01] MEDS: MEMANTINE 5MG TABLET PO SCH ×2 (09:10→20:24)
[2021-02-01] MEDS: ASPIRIN 81 MG TABLET EC PO SCH (09:10)
[2021-02-01 19:45] VITALS: BP 169/99
[2021-02-01] MEDS: TRIHEXYPHENIDYL 2MG TABLET PO SCH (20:24)
[2021-02-01] MEDS: ATORVASTATIN 80 MG TABLET PO SCH (20:24)
[2021-02-01 21:00] VITALS: BP 112/68
[2021-02-02 06:00] VITALS: BP 120/70
[2021-02-02] MEDS: ZIPRASIDONE 20MG CAPSULE PO SCH ×2 (09:10→20:57)
[2021-02-02] MEDS: ASPIRIN 81 MG TABLET EC PO SCH (09:10)
[2021-02-02] MEDS: MEMANTINE 5MG TABLET PO SCH ×2 (09:10→20:58)
[2021-02-02 19:35] VITALS: BP 108/76
[2021-02-02] MEDS: TRIHEXYPHENIDYL 2MG TABLET PO SCH (20:58)
[2021-02-02] MEDS: ATORVASTATIN 80 MG TABLET PO SCH (20:58)
[2021-02-03 07:46] VITALS: BP 109/62
[2021-02-03] MEDS: ZIPRASIDONE 20MG CAPSULE PO SCH ×2 (08:30→20:49)
[2021-02-03] MEDS: ASPIRIN 81 MG TABLET EC PO SCH (08:30)
[2021-02-03] MEDS: MEMANTINE 5MG TABLET PO SCH ×2 (08:30→20:49)
[2021-02-03 19:41] VITALS: BP 110/70
[2021-02-03] MEDS: ATORVASTATIN 80 MG TABLET PO SCH (20:49)
[2021-02-03] MEDS: TRIHEXYPHENIDYL 2MG TABLET PO SCH (20:50)
[2021-02-04 08:00] VITALS: BP 118/77
[2021-02-04] MEDS: ZIPRASIDONE 20MG CAPSULE PO SCH ×2 (09:47→20:54)
[2021-02-04] MEDS: ASPIRIN 81 MG TABLET EC PO SCH (09:47)
[2021-02-04] MEDS: MEMANTINE 5MG TABLET PO SCH ×2 (09:47→20:54)
[2021-02-04 19:14] VITALS: BP 144/77
[2021-02-04] MEDS: TRIHEXYPHENIDYL 2MG TABLET PO SCH (20:54)
[2021-02-04] MEDS: ATORVASTATIN 80 MG TABLET PO SCH (20:54)
[2021-02-05 07:55] VITALS: BP 119/77
[2021-02-05] MEDS: ZIPRASIDONE 20MG CAPSULE PO SCH ×2 (08:03→20:24)
[2021-02-05] MEDS: MEMANTINE 5MG TABLET PO SCH ×2 (08:03→20:24)
[2021-02-05] MEDS: ASPIRIN 81 MG TABLET EC PO SCH (08:03)
[2021-02-05 19:27] VITALS: BP 100/62
[2021-02-05] MEDS: TRIHEXYPHENIDYL 2MG TABLET PO SCH (20:24)
[2021-02-05] MEDS: ATORVASTATIN 80 MG TABLET PO SCH (20:24)
[2021-02-06 07:39] VITALS: BP 114/66
[2021-02-06] MEDS: MEMANTINE 5MG TABLET PO SCH ×2 (09:46→20:24)
[2021-02-06] MEDS: ASPIRIN 81 MG TABLET EC PO SCH (09:46)
[2021-02-06] MEDS: ZIPRASIDONE 20MG CAPSULE PO SCH ×2 (09:46→20:25)
[2021-02-06 20:10] VITALS: BP 127/75
[2021-02-06] MEDS: TRIHEXYPHENIDYL 2MG TABLET PO SCH (20:24)
[2021-02-06] MEDS: ATORVASTATIN 80 MG TABLET PO SCH (20:24)
[2021-02-07 07:20] VITALS: BP 132/85
[2021-02-07] MEDS: ASPIRIN 81 MG TABLET EC PO SCH (08:33)
[2021-02-07] MEDS: ZIPRASIDONE 20MG CAPSULE PO SCH ×2 (08:34→20:36)
[2021-02-07] MEDS: MEMANTINE 5MG TABLET PO SCH ×2 (08:34→20:36)
[2021-02-07 19:30] VITALS: BP 158/81
[2021-02-07] MEDS: ATORVASTATIN 80 MG TABLET PO SCH (20:36)
[2021-02-07] MEDS: TRIHEXYPHENIDYL 2MG TABLET PO SCH (20:36)
[2021-02-08 07:16] VITALS: BP 127/70
[2021-02-08] MEDS: ASPIRIN 81 MG TABLET EC PO SCH (08:18)
[2021-02-08] MEDS: MEMANTINE 5MG TABLET PO SCH ×2 (08:18→20:04)
[2021-02-08] MEDS: ZIPRASIDONE 20MG CAPSULE PO SCH ×2 (08:18→20:04)
[2021-02-08 19:39] VITALS: BP 145/77
[2021-02-08] MEDS: ATORVASTATIN 80 MG TABLET PO SCH (20:04)
[2021-02-08] MEDS: TRIHEXYPHENIDYL 2MG TABLET PO SCH (20:04)
[2021-02-09 08:05] VITALS: BP 115/71
[2021-02-09] MEDS: ASPIRIN 81 MG TABLET EC PO SCH (09:12)
[2021-02-09] MEDS: MEMANTINE 5MG TABLET PO SCH ×2 (09:13→20:11)
[2021-02-09] MEDS: ZIPRASIDONE 20MG CAPSULE PO SCH ×2 (09:13→20:11)
[2021-02-09 20:00] VITALS: BP 110/61
[2021-02-09] MEDS: TRIHEXYPHENIDYL 2MG TABLET PO SCH (20:11)
[2021-02-09] MEDS: ATORVASTATIN 80 MG TABLET PO SCH (20:11)
[2021-02-10 07:47] VITALS: BP 108/72
[2021-02-10] MEDS: ZIPRASIDONE 20MG CAPSULE PO SCH ×2 (08:36→20:09)
[2021-02-10] MEDS: MEMANTINE 5MG TABLET PO SCH ×2 (08:36→20:09)
[2021-02-10] MEDS: ASPIRIN 81 MG TABLET EC PO SCH (08:36)
[2021-02-10 19:32] VITALS: BP 144/70
[2021-02-10] MEDS: TRIHEXYPHENIDYL 2MG TABLET PO SCH (20:09)
[2021-02-10] MEDS: ATORVASTATIN 80 MG TABLET PO SCH (20:09)
[2021-02-11 07:53] VITALS: BP 111/70
[2021-02-11] MEDS: ZIPRASIDONE 20MG CAPSULE PO SCH ×2 (09:15→20:22)
[2021-02-11] MEDS: MEMANTINE 5MG TABLET PO SCH ×2 (09:15→20:22)
[2021-02-11] MEDS: ASPIRIN 81 MG TABLET EC PO SCH (09:15)
[2021-02-11] MEDS: TRIHEXYPHENIDYL 2MG TABLET PO SCH (20:22)
[2021-02-11] MEDS: ATORVASTATIN 80 MG TABLET PO SCH (20:23)
[2021-02-12 07:28] VITALS: BP 138/71
[2021-02-12] MEDS: ZIPRASIDONE 20MG CAPSULE PO SCH ×2 (09:02→20:16)
[2021-02-12] MEDS: MEMANTINE 5MG TABLET PO SCH ×2 (09:02→20:17)
[2021-02-12] MEDS: ASPIRIN 81 MG TABLET EC PO SCH (09:02)
[2021-02-12 19:40] VITALS: BP 130/70
[2021-02-12] MEDS: ATORVASTATIN 80 MG TABLET PO SCH (20:16)
[2021-02-12] MEDS: TRIHEXYPHENIDYL 2MG TABLET PO SCH (20:16)
[2021-02-13 07:47] VITALS: BP 104/55
[2021-02-13] MEDS: ASPIRIN 81 MG TABLET EC PO SCH (09:38)
[2021-02-13] MEDS: ZIPRASIDONE 20MG CAPSULE PO SCH ×2 (09:38→20:29)
[2021-02-13] MEDS: MEMANTINE 5MG TABLET PO SCH ×2 (09:38→20:29)
[2021-02-13 19:29] VITALS: BP 131/74
[2021-02-13] MEDS: ATORVASTATIN 80 MG TABLET PO SCH (20:29)
[2021-02-13] MEDS: TRIHEXYPHENIDYL 2MG TABLET PO SCH (20:29)
[2021-02-14 07:31] VITALS: BP 102/68
[2021-02-14] MEDS: ASPIRIN 81 MG TABLET EC PO SCH (09:15)
[2021-02-14] MEDS: MEMANTINE 5MG TABLET PO SCH ×2 (09:15→22:22)
[2021-02-14] MEDS: ZIPRASIDONE 20MG CAPSULE PO SCH ×2 (09:15→22:22)
[2021-02-14 18:41] VITALS: BP 111/74
[2021-02-14] MEDS: TRIHEXYPHENIDYL 2MG TABLET PO SCH (22:21)
[2021-02-14] MEDS: ATORVASTATIN 80 MG TABLET PO SCH (22:22)
[2021-02-15 06:33] VITALS: BP 125/77
[2021-02-15] MEDS: ASPIRIN 81 MG TABLET EC PO SCH (08:16)
[2021-02-15] MEDS: MEMANTINE 5MG TABLET PO SCH ×2 (08:16→21:14)
[2021-02-15] MEDS: ZIPRASIDONE 20MG CAPSULE PO SCH ×2 (08:17→21:14)
[2021-02-15 20:00] VITALS: BP 120/68
[2021-02-15] MEDS: ATORVASTATIN 80 MG TABLET PO SCH (21:14)
[2021-02-15] MEDS: TRIHEXYPHENIDYL 2MG TABLET PO SCH (21:14)
[2021-02-16 07:10] VITALS: BP 117/74
[2021-02-16] MEDS: ASPIRIN 81 MG TABLET EC PO SCH (08:55)
[2021-02-16] MEDS: MEMANTINE 5MG TABLET PO SCH ×2 (08:55→20:32)
[2021-02-16] MEDS: ZIPRASIDONE 20MG CAPSULE PO SCH ×2 (08:55→20:32)
[2021-02-16] MEDS: ATORVASTATIN 80 MG TABLET PO SCH (20:32)
[2021-02-16] MEDS: TRIHEXYPHENIDYL 2MG TABLET PO SCH (20:35)
[2021-02-17 07:47] VITALS: BP 110/70
[2021-02-17] MEDS: ZIPRASIDONE 20MG CAPSULE PO SCH ×2 (08:46→20:20)
[2021-02-17] MEDS: ASPIRIN 81 MG TABLET EC PO SCH (08:46)
[2021-02-17] MEDS: MEMANTINE 5MG TABLET PO SCH ×2 (08:46→20:21)
[2021-02-17 19:32] VITALS: BP 124/73
[2021-02-17] MEDS: TRIHEXYPHENIDYL 2MG TABLET PO SCH (20:21)
[2021-02-17] MEDS: ATORVASTATIN 80 MG TABLET PO SCH (20:21)
[2021-02-18 07:46] VITALS: BP 120/74
[2021-02-18] MEDS: ZIPRASIDONE 20MG CAPSULE PO SCH ×2 (08:37→20:41)
[2021-02-18] MEDS: ASPIRIN 81 MG TABLET EC PO SCH (08:37)
[2021-02-18] MEDS: MEMANTINE 5MG TABLET PO SCH ×2 (08:37→20:41)
[2021-02-18 19:20] VITALS: BP 99/62
[2021-02-18] MEDS: ATORVASTATIN 80 MG TABLET PO SCH (20:41)
[2021-02-18] MEDS: TRIHEXYPHENIDYL 2MG TABLET PO SCH (20:42)
[2021-02-19 07:55] VITALS: BP 114/77
[2021-02-19] MEDS: ASPIRIN 81 MG TABLET EC PO SCH (08:31)
[2021-02-19] MEDS: MEMANTINE 5MG TABLET PO SCH ×2 (08:31→20:25)
[2021-02-19] MEDS: ZIPRASIDONE 20MG CAPSULE PO SCH ×2 (08:31→20:25)
[2021-02-19 20:03] VITALS: BP 115/64
[2021-02-19] MEDS: TRIHEXYPHENIDYL 2MG TABLET PO SCH (20:25)
[2021-02-19] MEDS: ATORVASTATIN 80 MG TABLET PO SCH (20:25)
[2021-02-20 07:38] VITALS: BP 123/65
[2021-02-20] MEDS: MEMANTINE 5MG TABLET PO SCH ×2 (08:31→20:10)
[2021-02-20] MEDS: ZIPRASIDONE 20MG CAPSULE PO SCH ×2 (08:31→20:10)
[2021-02-20] MEDS: ASPIRIN 81 MG TABLET EC PO SCH (08:31)
[2021-02-20 19:44] VITALS: BP 130/64
[2021-02-20] MEDS: ATORVASTATIN 80 MG TABLET PO SCH (20:10)
[2021-02-20] MEDS: TRIHEXYPHENIDYL 2MG TABLET PO SCH (20:10)
[2021-02-21 07:10] VITALS: BP 110/60
[2021-02-21] MEDS: ASPIRIN 81 MG TABLET EC PO SCH (07:49)
[2021-02-21] MEDS: ZIPRASIDONE 20MG CAPSULE PO SCH ×2 (07:49→20:23)
[2021-02-21] MEDS: MEMANTINE 5MG TABLET PO SCH ×2 (07:50→20:24)
[2021-02-21 20:11] VITALS: BP 116/72
[2021-02-21] MEDS: TRIHEXYPHENIDYL 2MG TABLET PO SCH (20:24)
[2021-02-21] MEDS: ATORVASTATIN 80 MG TABLET PO SCH (20:24)
[2021-02-22 07:14] VITALS: BP 97/59
[2021-02-22] MEDS: ZIPRASIDONE 20MG CAPSULE PO SCH ×2 (07:56→20:09)
[2021-02-22] MEDS: ASPIRIN 81 MG TABLET EC PO SCH (07:56)
[2021-02-22] MEDS: MEMANTINE 5MG TABLET PO SCH ×2 (07:56→20:09)
[2021-02-22 19:25] VITALS: BP 114/77
[2021-02-22] MEDS: ATORVASTATIN 80 MG TABLET PO SCH (20:09)
[2021-02-22] MEDS: TRIHEXYPHENIDYL 2MG TABLET PO SCH (20:09)
[2021-02-23 07:58] VITALS: BP 108/69
[2021-02-23] MEDS: ZIPRASIDONE 20MG CAPSULE PO SCH ×2 (08:41→20:15)
[2021-02-23] MEDS: MEMANTINE 5MG TABLET PO SCH ×2 (08:41→20:15)
[2021-02-23] MEDS: ASPIRIN 81 MG TABLET EC PO SCH (08:41)
[2021-02-23 19:39] VITALS: BP 111/69
[2021-02-23] MEDS: TRIHEXYPHENIDYL 2MG TABLET PO SCH (20:15)
[2021-02-23] MEDS: ATORVASTATIN 80 MG TABLET PO SCH (20:15)
[2021-02-24 08:00] VITALS: BP 130/73
[2021-02-24] MEDS: ASPIRIN 81 MG TABLET EC PO SCH (08:12)
[2021-02-24] MEDS: MEMANTINE 5MG TABLET PO SCH ×2 (08:12→20:22)
[2021-02-24] MEDS: ZIPRASIDONE 20MG CAPSULE PO SCH ×2 (08:13→20:22)
[2021-02-24 19:10] VITALS: BP 112/56
[2021-02-24] MEDS: TRIHEXYPHENIDYL 2MG TABLET PO SCH (20:22)
[2021-02-24] MEDS: ATORVASTATIN 80 MG TABLET PO SCH (20:22)
[2021-02-25 08:02] VITALS: BP 144/80
[2021-02-25] MEDS: ASPIRIN 81 MG TABLET EC PO SCH (08:33)
[2021-02-25] MEDS: ZIPRASIDONE 20MG CAPSULE PO SCH ×2 (08:33→20:52)
[2021-02-25] MEDS: MEMANTINE 5MG TABLET PO SCH ×2 (08:33→20:52)
[2021-02-25 19:40] VITALS: BP 118/75
[2021-02-25] MEDS: ATORVASTATIN 80 MG TABLET PO SCH (20:52)
[2021-02-25] MEDS: TRIHEXYPHENIDYL 2MG TABLET PO SCH (20:52)
[2021-02-26 08:00] VITALS: BP 113/71
[2021-02-26] MEDS: MEMANTINE 5MG TABLET PO SCH ×2 (08:59→20:31)
[2021-02-26] MEDS: ASPIRIN 81 MG TABLET EC PO SCH (09:00)
[2021-02-26] MEDS: ZIPRASIDONE 20MG CAPSULE PO SCH ×2 (09:00→20:31)
[2021-02-26 18:58] VITALS: BP 109/68
[2021-02-26] MEDS: ATORVASTATIN 80 MG TABLET PO SCH (20:31)
[2021-02-26] MEDS: TRIHEXYPHENIDYL 2MG TABLET PO SCH (20:31)
[2021-02-27 07:47] VITALS: BP 121/70
[2021-02-27] MEDS: ZIPRASIDONE 20MG CAPSULE PO SCH ×2 (08:52→21:15)
[2021-02-27] MEDS: ASPIRIN 81 MG TABLET EC PO SCH (08:52)
[2021-02-27] MEDS: MEMANTINE 5MG TABLET PO SCH ×2 (08:52→21:15)
[2021-02-27 19:40] VITALS: BP 102/54
[2021-02-27] MEDS: ATORVASTATIN 80 MG TABLET PO SCH (21:15)
[2021-02-27] MEDS: TRIHEXYPHENIDYL 2MG TABLET PO SCH (21:15)
[2021-02-28 07:21] VITALS: BP 129/73
[2021-02-28] MEDS: ASPIRIN 81 MG TABLET EC PO SCH (08:50)
[2021-02-28] MEDS: MEMANTINE 5MG TABLET PO SCH ×2 (08:50→20:22)
[2021-02-28] MEDS: ZIPRASIDONE 20MG CAPSULE PO SCH ×2 (08:50→20:22)
[2021-02-28 19:41] VITALS: BP 143/89
[2021-02-28] MEDS: ATORVASTATIN 80 MG TABLET PO SCH (20:22)
[2021-02-28] MEDS: TRIHEXYPHENIDYL 2MG TABLET PO SCH (20:22)
[2021-03-01 07:35] VITALS: BP 118/73
[2021-03-01] MEDS: MEMANTINE 5MG TABLET PO SCH ×2 (08:39→20:46)
[2021-03-01] MEDS: ASPIRIN 81 MG TABLET EC PO SCH (08:39)
[2021-03-01] MEDS: ZIPRASIDONE 20MG CAPSULE PO SCH ×2 (08:39→20:47)
[2021-03-01 19:52] VITALS: BP 117/72
[2021-03-01] MEDS: TRIHEXYPHENIDYL 2MG TABLET PO SCH (20:46)
[2021-03-01] MEDS: ATORVASTATIN 80 MG TABLET PO SCH (20:46)
[2021-03-02 07:59] VITALS: BP 109/70
[2021-03-02] MEDS: MEMANTINE 5MG TABLET PO SCH ×2 (08:29→20:12)
[2021-03-02] MEDS: ASPIRIN 81 MG TABLET EC PO SCH (08:29)
[2021-03-02] MEDS: ZIPRASIDONE 20MG CAPSULE PO SCH ×2 (08:29→20:11)
[2021-03-02 18:24] VITALS: BP 116/71
[2021-03-02] MEDS: ATORVASTATIN 80 MG TABLET PO SCH (20:11)
[2021-03-02] MEDS: TRIHEXYPHENIDYL 2MG TABLET PO SCH (20:12)
[2021-03-03 07:19] VITALS: BP 129/67
[2021-03-03] MEDS: MEMANTINE 5MG TABLET PO SCH ×2 (08:37→20:22)
[2021-03-03] MEDS: ASPIRIN 81 MG TABLET EC PO SCH (08:37)
[2021-03-03] MEDS: ZIPRASIDONE 20MG CAPSULE PO SCH ×2 (08:37→20:22)
[2021-03-03 19:45] VITALS: BP 142/72
[2021-03-03] MEDS: TRIHEXYPHENIDYL 2MG TABLET PO SCH (20:22)
[2021-03-03] MEDS: ATORVASTATIN 80 MG TABLET PO SCH (20:22)
[2021-03-04 07:39] VITALS: BP 123/83
[2021-03-04] MEDS: MEMANTINE 5MG TABLET PO SCH ×2 (10:18→21:23)
[2021-03-04] MEDS: ASPIRIN 81 MG TABLET EC PO SCH (10:18)
[2021-03-04] MEDS: ZIPRASIDONE 20MG CAPSULE PO SCH ×2 (10:18→21:25)
[2021-03-04 19:33] VITALS: BP 97/62
[2021-03-04] MEDS: TRIHEXYPHENIDYL 2MG TABLET PO SCH (21:23)
[2021-03-04] MEDS: ATORVASTATIN 80 MG TABLET PO SCH (21:23)
[2021-03-05 07:50] VITALS: BP 117/77
[2021-03-05] MEDS: ASPIRIN 81 MG TABLET EC PO SCH (08:47)
[2021-03-05] MEDS: MEMANTINE 5MG TABLET PO SCH ×2 (08:48→20:35)
[2021-03-05] MEDS: ZIPRASIDONE 20MG CAPSULE PO SCH ×2 (08:48→20:34)
[2021-03-05 19:42] VITALS: BP 110/59
[2021-03-05] MEDS: TRIHEXYPHENIDYL 2MG TABLET PO SCH (20:34)
[2021-03-05] MEDS: ATORVASTATIN 80 MG TABLET PO SCH (20:35)
[2021-03-06 07:25] VITALS: BP 159/75
[2021-03-06] MEDS: ZIPRASIDONE 20MG CAPSULE PO SCH ×2 (08:39→20:14)
[2021-03-06] MEDS: ASPIRIN 81 MG TABLET EC PO SCH (08:39)
[2021-03-06] MEDS: MEMANTINE 5MG TABLET PO SCH ×2 (08:39→20:14)
[2021-03-06 19:49] VITALS: BP 118/58
[2021-03-06] MEDS: ATORVASTATIN 80 MG TABLET PO SCH (20:14)
[2021-03-06] MEDS: TRIHEXYPHENIDYL 2MG TABLET PO SCH (20:14)
[2021-03-07 07:15] VITALS: BP 114/67
[2021-03-07 07:17] VITALS: BP 106/68
[2021-03-07] MEDS: MEMANTINE 5MG TABLET PO SCH ×2 (08:20→20:25)
[2021-03-07] MEDS: ZIPRASIDONE 20MG CAPSULE PO SCH ×2 (08:20→20:25)
[2021-03-07] MEDS: ASPIRIN 81 MG TABLET EC PO SCH (08:20)
[2021-03-07 19:20] VITALS: BP 124/70
[2021-03-07] MEDS: ATORVASTATIN 80 MG TABLET PO SCH (20:25)
[2021-03-07] MEDS: TRIHEXYPHENIDYL 2MG TABLET PO SCH (20:25)
[2021-03-08 07:27] VITALS: BP 161/77
[2021-03-08] MEDS: ZIPRASIDONE 20MG CAPSULE PO SCH ×2 (08:36→20:46)
[2021-03-08] MEDS: ASPIRIN 81 MG TABLET EC PO SCH (08:36)
[2021-03-08] MEDS: MEMANTINE 5MG TABLET PO SCH ×2 (08:36→20:46)
[2021-03-08 19:54] VITALS: BP 146/75
[2021-03-08] MEDS: ATORVASTATIN 80 MG TABLET PO SCH (20:46)
[2021-03-08] MEDS: TRIHEXYPHENIDYL 2MG TABLET PO SCH (20:46)
[2021-03-09 08:00] VITALS: BP 120/83
[2021-03-09] MEDS: MEMANTINE 5MG TABLET PO SCH ×2 (09:23→20:12)
[2021-03-09] MEDS: ZIPRASIDONE 20MG CAPSULE PO SCH ×2 (09:23→20:12)
[2021-03-09] MEDS: ASPIRIN 81 MG TABLET EC PO SCH (09:23)
[2021-03-09 19:32] VITALS: BP 148/84
[2021-03-09] MEDS: ATORVASTATIN 80 MG TABLET PO SCH (20:12)
[2021-03-09] MEDS: TRIHEXYPHENIDYL 2MG TABLET PO SCH (20:12)
[2021-03-10 09:55] VITALS: BP 149/73
[2021-03-10] MEDS: MEMANTINE 5MG TABLET PO SCH ×2 (09:59→21:02)
[2021-03-10] MEDS: ASPIRIN 81 MG TABLET EC PO SCH (09:59)
[2021-03-10] MEDS: ZIPRASIDONE 20MG CAPSULE PO SCH ×2 (09:59→21:02)
[2021-03-10 20:13] VITALS: BP 117/72
[2021-03-10] MEDS: TRIHEXYPHENIDYL 2MG TABLET PO SCH (21:01)
[2021-03-10] MEDS: ATORVASTATIN 80 MG TABLET PO SCH (21:02)
[2021-03-11 08:01] VITALS: BP 126/69
[2021-03-11] MEDS: MEMANTINE 5MG TABLET PO SCH ×2 (08:14→20:11)
[2021-03-11] MEDS: ASPIRIN 81 MG TABLET EC PO SCH (08:14)
[2021-03-11] MEDS: ZIPRASIDONE 20MG CAPSULE PO SCH ×2 (08:14→20:11)
[2021-03-11 19:34] VITALS: BP 122/69
[2021-03-11] MEDS: ATORVASTATIN 80 MG TABLET PO SCH (20:11)
[2021-03-11] MEDS: TRIHEXYPHENIDYL 2MG TABLET PO SCH (20:11)
[2021-03-12 07:15] VITALS: BP 102/65
[2021-03-12] MEDS: MEMANTINE 5MG TABLET PO SCH ×2 (09:35→20:45)
[2021-03-12] MEDS: ASPIRIN 81 MG TABLET EC PO SCH (09:35)
[2021-03-12] MEDS: ZIPRASIDONE 20MG CAPSULE PO SCH ×2 (09:35→20:45)
[2021-03-12 19:46] VITALS: BP 104/60
[2021-03-12] MEDS: ATORVASTATIN 80 MG TABLET PO SCH (20:45)
[2021-03-12] MEDS: TRIHEXYPHENIDYL 2MG TABLET PO SCH (20:45)
[2021-03-13 07:36] VITALS: BP 130/66
[2021-03-13] MEDS: MEMANTINE 5MG TABLET PO SCH ×2 (08:42→20:54)
[2021-03-13] MEDS: ASPIRIN 81 MG TABLET EC PO SCH (08:42)
[2021-03-13] MEDS: ZIPRASIDONE 20MG CAPSULE PO SCH ×2 (08:42→20:53)
[2021-03-13 19:40] VITALS: BP 120/76
[2021-03-13] MEDS: ATORVASTATIN 80 MG TABLET PO SCH (20:53)
[2021-03-13] MEDS: TRIHEXYPHENIDYL 2MG TABLET PO SCH (20:53)
[2021-03-14 07:22] VITALS: BP 119/66
[2021-03-14] MEDS: MEMANTINE 5MG TABLET PO SCH ×2 (09:17→20:26)
[2021-03-14] MEDS: ASPIRIN 81 MG TABLET EC PO SCH (09:18)
[2021-03-14] MEDS: ZIPRASIDONE 20MG CAPSULE PO SCH ×2 (09:18→20:27)
[2021-03-14 19:22] VITALS: BP 106/58
[2021-03-14] MEDS: TRIHEXYPHENIDYL 2MG TABLET PO SCH (20:26)
[2021-03-14] MEDS: ATORVASTATIN 80 MG TABLET PO SCH (20:26)
[2021-03-15 07:14] VITALS: BP 108/65
[2021-03-15] MEDS: ASPIRIN 81 MG TABLET EC PO SCH (08:23)
[2021-03-15] MEDS: ZIPRASIDONE 20MG CAPSULE PO SCH ×2 (08:23→20:19)
[2021-03-15] MEDS: MEMANTINE 5MG TABLET PO SCH ×2 (08:23→20:18)
[2021-03-15 18:02] VITALS: BP 155/85
[2021-03-15] MEDS: ATORVASTATIN 80 MG TABLET PO SCH (20:18)
[2021-03-15] MEDS: TRIHEXYPHENIDYL 2MG TABLET PO SCH (20:19)
[2021-03-16 07:42] VITALS: BP 112/73
[2021-03-16] MEDS: ASPIRIN 81 MG TABLET EC PO SCH (09:03)
[2021-03-16] MEDS: ZIPRASIDONE 20MG CAPSULE PO SCH ×2 (09:04→20:28)
[2021-03-16] MEDS: MEMANTINE 5MG TABLET PO SCH ×2 (09:04→20:28)
[2021-03-16 19:39] VITALS: BP 115/75
[2021-03-16] MEDS: TRIHEXYPHENIDYL 2MG TABLET PO SCH (20:28)
[2021-03-16] MEDS: ATORVASTATIN 80 MG TABLET PO SCH (20:28)
[2021-03-17 07:52] VITALS: BP 120/79
[2021-03-17] MEDS: ZIPRASIDONE 20MG CAPSULE PO SCH ×2 (08:48→20:16)
[2021-03-17] MEDS: ASPIRIN 81 MG TABLET EC PO SCH (08:48)
[2021-03-17] MEDS: MEMANTINE 5MG TABLET PO SCH ×2 (08:48→20:16)
[2021-03-17] MEDS ORDERED: MEMA5TAB42 PO (10:49)
[2021-03-17] MEDS ORDERED: ASPI81TA45 PO (10:49)
[2021-03-17] MEDS ORDERED: TRIH2TAB3 PO (10:49)
[2021-03-17] MEDS ORDERED: ZIPR20CA2 PO (10:49)
[2021-03-17] MEDS ORDERED: ATOR-2 PO (10:49)
[2021-03-17 19:44] VITALS: BP 103/63
[2021-03-17] MEDS: TRIHEXYPHENIDYL 2MG TABLET PO SCH (20:16)
[2021-03-17] MEDS: ATORVASTATIN 80 MG TABLET PO SCH (20:16)
[2021-03-18 07:47] VITALS: BP 109/69
[2021-03-18] MEDS: ASPIRIN 81 MG TABLET EC PO SCH (08:35)
[2021-03-18] MEDS: MEMANTINE 5MG TABLET PO SCH (08:36)
[2021-03-18] MEDS: ZIPRASIDONE 20MG CAPSULE PO SCH (08:36)
== END 2021-03-18 11:35 | disposition home or self-care (01) | DRG 885 ==
LOC: 3E 14:43
PROVIDERS: ADMIT Psychiatry & Neurology Psychosomatic Medicine; ATTEND Psychiatry & Neurology Psychosomatic Medicine
DX: F25.0 Schizoaffective disorder, bipolar type (principal); F03.91 Unspecified dementia, unspecified severity, with behavioral disturbance; D64.9 Anemia, unspecified; E66.9 Obesity, unspecified; E78.5 Hyperlipidemia, unspecified; F09 Unspecified mental disorder due to known physiological condition; F41.9 Anxiety disorder, unspecified; G47.00 Insomnia, unspecified; G89.29 Other chronic pain; H91.90 Unspecified hearing loss, unspecified ear; I10 Essential (primary) hypertension; I25.10 Atherosclerotic heart disease of native coronary artery without angina pectoris; Z79.82 Long term (current) use of aspirin; Z79.899 Other long term (current) drug therapy; Z86.718 Personal history of other venous thrombosis and embolism; Z91.19 Patient's noncompliance with other medical treatment and regimen; Z91.81 History of falling; Z95.1 Presence of aortocoronary bypass graft; Z68.29 Body mass index [BMI] 29.0-29.9, adult
CPT/HCPCS: 36415; 70450; 71045; 76604; 80048; 80053; 80061; 81003; 84439; 84443; 85025; 87070; 87205; 93005; 93306; J0295; J3360; Q0162; 92523-GN; J2060